=== PATIENT | male | born 1970 | race African-American/Black ===

== ENCOUNTER 2018-04-06 07:42 | Emergency (ER) | payer OTHER ==
[~2018-04-06] VITALS: Ht 170.2 cm; Wt 108.9 kg
[~2018-04-06 07:42] MED LIST: CYCLOBENZAPRINE10 MG ORAL; IBUPROFEN800 MG ORAL; LEVEMIR FL100 UNIT/1 SUBQ; NKM; NOVOLIN N100 UNIT/1 SUBQ; NOVOLIN R100 UNIT/1 SUBQ; NOVOLOG100 UNITS1 SUBQ
--- NOTE | 2018-04-06 07:50 | NUR ---
ED Nurse Note: A/Ox4. Ambulated in to ER due to abdominal pain 11/26, N/V, fatiue and increased urination frequency since 04/04/18. Pt is DM2 but has not taken insulin x2 weeks due to family issues. BS 420. Dr. Rodriguez at the bedside.
[2018-04-06 07:53] VITALS: BP 113/80
--- NOTE | 2018-04-06 08:00 | NUR ---
ED Nurse Note: urine and blood specimens sent down to the lab.
[2018-04-06 08:13] LABS: BASOPHILS % (AUTO) 1.2 % (0.0-2.0); EOSINOPHILS % (AUTO) 1.6 % (0.0-3.0); HEMATOCRIT 49.3 % (42.0-52.0); HEMOGLOBIN 16.5 G/DL (14.2-18.0); LYMPHOCYTES % (AUTO) 44.9 % (20.0-45.0); MEAN CORPUSCULAR VOLUME 90 FL (80-99); MONOCYTES % (AUTO) 6.2 % (1.0-10.0); NEUTROPHILS % (AUTO) 46.1 % (45.0-75.0); PLATELET COUNT 205 K/UL (150-450); RED BLOOD COUNT 5.46 M/UL (4.70-6.10); WHITE BLOOD COUNT 7.8 K/UL (4.8-10.8)
[2018-04-06 08:23] LABS: APPEARANCE,URINE CLEAR; BILIRUBIN, URINE NEGATIVE (NEGATIVE); COLOR,URINE PALE YELLOW; GLUCOSE, URINE (UA) 4+ (NEGATIVE); KETONES,URINE 4+ (NEGATIVE); LEUKOCYTE ESTERASE ,URINE NEGATIVE (NEGATIVE); NITRITE,URINE NEGATIVE (NEGATIVE); PH,URINE 5 (4.5-8.0); PROTEIN,URINE 1+ (NEGATIVE); UROBILINOGEN,URINE NORMAL MG/DL (0.0-1.0)
[2018-04-06 08:37] LABS: ANION GAP 15 mmol/L (5-15); BLOOD UREA NITROGEN 14 mg/dL (7-18); CALCIUM 8.7 MG/DL (8.5-10.1); CARBON DIOXIDE 19 MMOL/L (21-32); CHLORIDE 98 MMOL/L (98-107); CREATININE 1.2 MG/DL (0.55-1.30); POTASSIUM 4.3 MMOL/L (3.5-5.1); SODIUM 132 MMOL/L (136-145)
[2018-04-06 08:44] LABS: ALANINE AMINOTRANSFERASE 25 U/L (12-78); ALBUMIN 3.2 G/DL (3.4-5.0); ALBUMIN/GLOBULIN RATIO 0.6 (1.0-2.7); ALKALINE PHOSPHATASE 170 U/L (46-116); BILIRUBIN,TOTAL 0.5 MG/DL (0.2-1.0)
[2018-04-06] MEDS ORDERED: Insulin Human Regular 100units/ml 3ml IV ONE (09:00)
[2018-04-06] MEDS ORDERED: LANTUS SOL100 UNIT/1 SUBQ (09:03)
[2018-04-06] MEDS ORDERED: HUMALOG 75/255 UNIT1 SUBQ (09:03)
[2018-04-06 09:08] LABS: ASPARTATE AMINO TRANSFERASE 28 U/L (15-37)
[2018-04-06 09:13] VITALS: BP 126/69
--- NOTE | 2018-04-06 09:13 | NUR ---
ED Nurse Note: A/OX4. NOTIFIED DR. Rodriguez ABOUT BS 410. PER DR. Rodriguez, PT CAN BE DISCHARGE WITH THE BS OF 410. DC INSTRUCTION AND PRESCRIPTIONS GIVEN, PT VERBALIZED UNDERSTANIDNG. IV/ID WRIST BAND REMOVED. ALL BELONGINGS TAKEN BY PT. PT AMBULATED OUT OF ER WITH STEADY GAIT. DENIES ANY PAIN AT THIS TIME.
--- NOTE | 2018-04-06 17:10 | Emergency Room Report ---
History of Present Illness General Chief Complaint: General Complaint Source: Patient Present Illness HPI 47-year-old male presents ED for evaluation. Patient complaining of increased urination and thirst. States that he has not had his diabetic medications 2 weeks because he ran out. Has not been able to see his PMD. States he takes Humalog and Lantus. Denies fevers or chills. Denies nausea or vomiting. Denies any abdominal pain. No other aggravating relieving factors. Denies any other associated symptoms Allergies: Coded Allergies: No Known Allergies (Unverified , 07/11/14) Patient History Past Medical History: DM Past Surgical History: none Pertinent Family History: none Social History: Denies: smoking, alcohol use, drug use Immunizations: UTD Reviewed Nursing Documentation: PMH: Agreed; PSxH: Agreed Nursing Documentation-PMH Past Medical History: No History, Except For Hx Cardiac Problems: No Hx Diabetes: Yes - type 2 Hx Cancer: No Hx Gastrointestinal Problems: No Hx Neurological Problems: No Review of Systems All Other Systems: negative except mentioned in HPI Physical Exam Vital Signs Date Time Temp Pulse Resp B/P (MAP) Pulse Ox O2 Delivery O2 Flow Rate FiO2 04/06/18 07:45 98.8 117 20 121/73 95 Room Air Sp02 EP Interpretation: reviewed, normal General Appearance: no apparent distress, alert, GCS 15, non-toxic Head: normocephalic, atraumatic Eyes: bilateral eye normal inspection, bilateral eye PERRL ENT: hearing grossly normal, normal pharynx, no angioedema, normal voice Neck: full range of motion, supple/symm/no masses Respiratory: chest non-tender, lungs clear, normal breath sounds, speaking full sentences Cardiovascular #1: regular rate, rhythm, no edema Cardiovascular #2: 2+ carotid (R), 2+ carotid (L), 2+ radial (R), 2+ radial (L) , 2+ dorsalis pedis (R), 2+ dorsalis pedis (L) Gastrointestinal: normal bowel sounds, non tender, soft, non-distended, no guarding, no rebound Rectal: deferred Genitourinary: normal inspection, no CVA tenderness Musculoskeletal: back normal, gait/station normal, normal range of motion, non- tender Neurologic: alert, oriented x3, responsive, motor strength/tone normal, sensory intact, speech normal Psychiatric: judgement/insight normal, memory normal, mood/affect normal, no suicidal/homicidal ideation Reflexes: 3+ bicep (R), 3+ bicep (L), 3+ tricep (R), 3+ tricep (L), 3+ knee (R) , 3+ knee (L) Skin: normal color, no rash, warm/dry, well hydrated Lymphatic: no adenopathy Medical Decision Making Diagnostic Impression: Primary Impression: Uncontrolled diabetes mellitus Qualified Codes: E10.649 - Type 1 diabetes mellitus with hypoglycemia without coma ER Course Hospital Course 47-year-old male presenting to ED with elevated BS. Increased thirst and frequent urination Differential diagnoses include: ETOH/drug ingestion, sepsis, DKA Clinical course Patient placed on stretcher. On hospital monitor. After initial history and physical I ordered labs, IV fluids, urine Labs-glucose elevated, no anion gap, bicarbonate normal, electrolytes ok. no leukocytosis. acetone positive On reassessment patient feels better. Given insulin. No evidence of DKA. Patient be safely discharged to home. I'll provide referrals and refills of his Humalog and Lantus I. I feel this is a highly complex case requiring extensive working including EKG/Rhythm strip, Xray/CT/US, Blood/urine lab work, repeat exams while in ED, and administration of strong opiates/narcotics for pain control, admission to hospital or close patient follow up. diagnosis -uncontrolled diabetes Stable and discharged to home with prescription for Lantus and Humalog. Followup with PMD. Return to ED if symptoms recur or worsen Labs Test 04/06/18 08:00 White Blood Count 7.8 K/UL (4.8-10.8) Red Blood Count 5.46 M/UL (4.70-6.10) Hemoglobin 16.5 G/DL (14.2-18.0) Hematocrit 49.3 % (42.0-52.0) Mean Corpuscular Volume 90 FL (80-99) Mean Corpuscular Hemoglobin 30.2 PG (27.0-31.0) Mean Corpuscular Hemoglobin Concent 33.5 G/DL (32.0-36.0) Red Cell Distribution Width 13.0 % (11.6-14.8) Platelet Count 205 K/UL (150-450) Mean Platelet Volume 9.9 FL (6.5-10.1) Neutrophils (%) (Auto) 46.1 % (45.0-75.0) Lymphocytes (%) (Auto) 44.9 % (20.0-45.0) Monocytes (%) (Auto) 6.2 % (1.0-10.0) Eosinophils (%) (Auto) 1.6 % (0.0-3.0) Basophils (%) (Auto) 1.2 % (0.0-2.0) Urine Color Pale yellow Urine Appearance Clear Urine pH 5 (4.5-8.0) Urine Specific [place] 1.020 (1.005-1.035) Urine Protein 1+ (NEGATIVE) Urine Glucose (UA) 4+ (NEGATIVE) Urine Ketones 4+ (NEGATIVE) Urine Blood Negative (NEGATIVE) Urine Nitrite Negative (NEGATIVE) Urine Bilirubin Negative (NEGATIVE) Urine Urobilinogen Normal MG/DL (0.0-1.0) Urine Leukocyte Esterase Negative (NEGATIVE) Urine RBC 0 /HPF (0 - 0) Urine WBC 0 /HPF (0 - 0) Urine Squamous Epithelial Cells None /LPF (NONE/OCC) Urine Bacteria None /HPF (NONE) Sodium Level 132 MMOL/L (136-145) Potassium Level 4.3 MMOL/L (3.5-5.1) Chloride Level 98 MMOL/L (98-107) Carbon Dioxide Level 19 MMOL/L (21-32) Anion Gap 15 mmol/L (5-15) Blood Urea Nitrogen 14 mg/dL (7-18) Creatinine 1.2 MG/DL (0.55-1.30) Estimat Glomerular Filtration Rate > 60 mL/min (>60) Glucose Level 466 MG/DL (74-106) Calcium Level 8.7 MG/DL (8.5-10.1) Magnesium Level 1.6 MG/DL (1.8-2.4) Total Bilirubin 0.5 MG/DL (0.2-1.0) Aspartate Amino Transf (AST/SGOT) 28 U/L (15-37) Alanine Aminotransferase (ALT/SGPT) 25 U/L (12-78) Alkaline Phosphatase 170 U/L (46-116) Total Protein 8.3 G/DL (6.4-8.2) Albumin 3.2 G/DL (3.4-5.0) Globulin 5.1 g/dL Albumin/Globulin Ratio 0.6 (1.0-2.7) Acetone Level Positive-small (NEGATIVE) Last Vital Signs Date Time Temp Pulse Resp B/P (MAP) Pulse Ox O2 Delivery O2 Flow Rate FiO2 04/06/18 09:13 97.8 109 17 126/69 97 Room Air Status: improved Disposition: HOME, SELF-CARE Condition: Stable Scripts Insulin Glargine (LANTUS) 100 Unit/1 Ml Insuln.pen 47 UNIT SUBQ BEDTIME for 30 Days, #1 EA 0 Refills Prov: Margarito Almanza MD 04/06/18 Insulin Human Lispro (Humalog) 100 Unit/1 Ml Vial 17 UNIT SUBQ BEFORE MEALS for 30 Days, #1 UNIT 0 Refills Prov: Margarito Almanza MD 04/06/18 Referrals: [facility] Patient Instructions: Hyperglycemia, [id number] Margarito Almanza MD Apr 06, 2018 17:10
== END 2018-04-06 09:13 | disposition home or self-care (01) ==
LOC: EMR 08:00
DX: E11.65 Type 2 diabetes mellitus with hyperglycemia (principal); Z79.4 Long term (current) use of insulin
CPT/HCPCS: 36415; 80053; 81003; 82009; 82962; 83735; 85025; 96361; 96374; 99284; J1815